=== PATIENT | female | born 1980 | race Two or more races ===

== ENCOUNTER 2016-05-16 16:56 | Emergency (ER) | payer OTHER ==
[2016-05-16] MEDS ORDERED: Tetan/Diph/Pertus SYR(Tdap)* 0.5 ML SYR(BOOSTRIX) use SYR IM ONE (17:30)
[2016-05-16] MEDS ORDERED: Silver Sulfadiazine 1%* 20 GM TOPICAL ONE (17:32)
[2016-05-16 17:33] VITALS: BP 146/92
--- NOTE | 2016-05-17 09:29 | ED ---
Nathen Tavarez Michael, scribed for Bakari Sidhu MD on 05/16/16 at 1736 . Burn - HPI Summary HPI Summary: 36 y/o female comes to the ED presenting with multiple mckeon after spilling boiling water on herself at home 4 days ago. The pt reports that she has decreased strength in her RUE, so the pot with boiling water fell out of her hands. The mckeon are on her RLE and abd. She has been applying Sildvadine to the mckeon and has not been covering them. - History of Current Complaint Chief Complaint: EDBurnSmokeInh Stated Complaint: BURN ON ABD/LEG Time Seen by Provider: 05/16/16 17:25 Hx Obtained From: Patient, Medical Records Occurred: Days Ago Onset Severity: Moderate Current Severity: Moderate Pain Intensity: 8 Pain Scale Used: 0-10 Numeric Location: Trunk, RLE Character: Erythema Alleviating: Ointments Associated Signs & Symptoms: Positive: Negative Occupational Injury: No - Allergy/Home Medications Allergies/Adverse Reactions: Allergies Allergy/AdvReac Type Severity Reaction Status Date / Time No Known Allergies Allergy Verified 05/16/16 17:00 PMH/Surg Hx/FS Hx/Imm Hx Previously Healthy: Yes Musculoskeletal History: Denies: Hx Rheumatoid Arthritis Infectious Disease History: No Infectious Disease History: Denies: Traveled Outside the [place] in Last 30 Days - Family History Known Family History: Positive: None Family History: pt denies significant FHx - Social History Occupation: Employed Full-time Lives: With Family Alcohol Use: None Hx Substance Use: No Substance Use Type: Reports: None Hx Tobacco Use: No Smoking Status (MU): Never Smoked Tobacco Review of Systems Negative: Fever Positive: Other - burn All Other Systems Reviewed And Are Negative: Yes Physical Exam Triage Information Reviewed: Yes Vital Signs On Initial Exam: Initial Vitals Temp Pulse Resp BP Pulse Ox 96.8 F 77 18 151/96 100 05/16/16 17:00 05/16/16 17:00 05/16/16 17:00 05/16/16 17:00 05/16/16 17:00 Vital Signs Reviewed: Yes Appearance: Positive: Well-Appearing, No Pain Distress, Obese Skin: Positive: Warm, Skin Color Reflects Adequate Perfusion, Dry, Other - deep partial mckeon of the anterior right lower leg, medial thigh, and abd totally 1% of total body surface area Head/Face: Positive: Normal Head/Face Inspection Eyes: Positive: Normal ENT: Positive: Normal ENT inspection Neck: Positive: Supple, Nontender Respiratory/Lung Sounds: Positive: Clear to Auscultation, Breath Sounds Present Cardiovascular: Positive: RRR Abdomen Description: Positive: Nontender, Soft Bowel Sounds: Positive: Present Musculoskeletal: Positive: Normal Neurological: Positive: Normal Psychiatric: Positive: Affect/Mood Appropriate Burn Calculation - Quinter Formula for Fluid Resuscitation Weight: 243 lb 24 -Hour Fluid Replacement: 0.0 Diagnostics - Vital Signs Vital Signs Temp Pulse Resp BP Pulse Ox 05/16/16 17:00 96.8 F 77 18 151/96 100 - Laboratory Lab Statement: Any lab studies that have been ordered have been reviewed, and results considered in the medical decision making process. Burn Course/Dx - Course Course Of Treatment: Ms. Balderrama has partial thickness mckeon some of which had blistered and ruptured. She has been using some Silvadene and they don't look infected to me. I will continue treatment with silvadene. There is nothing to debride. - Diagnoses Provider Diagnosis: Burn Discharge - Discharge Plan Condition: Stable Disposition: HOME Prescriptions: Silver Sulfadiazine 1% 400gm* [SILVadine 1% 400 gm jar*] 1 applic TOPICAL BID # 1 jar Patient Education Materials: Acute Wound Care (ED) Referrals: [facility] [place] [facility] [place]Outside] Additional Instructions: Please follow up with a Primary Physician Referral within the next 3-5 days. The documentation as recorded by the Nathen byrne Michael accurately reflects the service I personally performed and the decisions made by me, Bakari Sidhu MD.
== END 2016-05-16 17:45 | disposition home or self-care (01) ==
LOC: ED 16:56
DX: T23.109A Burn of first degree of unspecified hand, unspecified site, initial encounter (principal); X12.XXXA Contact with other hot fluids, initial encounter; Y93.9 Activity, unspecified; Y92.9 Unspecified place or not applicable
CPT/HCPCS: 90471; 90715; 99282; A9270-GY

== ENCOUNTER 2016-08-28 14:46 | Emergency (ER) | payer OTHER ==
[2016-08-28] MEDS ORDERED: NS 0.9% 1000 ML* 2,000 ML IV ONE (15:05)
[2016-08-28 15:56] LABS: Hematocrit 40 % (35-47); Hemoglobin 13.4 g/dl (12.0-16.0); Mean Corpuscular HGB Conc 34 g/dl (31-36); Mean Corpuscular Hemoglobin 30 pg (27-31); Mean Corpuscular Volume 89 fL (80-97); Mean Platelet Volume 8 um3 (7.4-10.4); Red Blood Count 4.49 10^6/ul (4.0-5.4); Red Cell Distribution Width 14 % (10.5-15); White Blood Count 8.7 10^3/ul (3.5-10.8)
[2016-08-28 16:15] LABS: Albumin 4.1 g/dL (3.2-5.2); BUN/Creatinine Ratio 14.1 (8-20); EGFR African American 136.6 (>60); EGFR Non-African American 106.2 (>60); Globulin 3.2 g/dL (2-4); Magnesium 1.8 mg/dL (1.9-2.7); Potassium 3.5 mmol/L (3.5-5.0); Total Bilirubin 0.4 mg/dL (0.2-1.0); Total Protein 7.3 g/dL (6.4-8.9)
[2016-08-28 16:21] LABS: TSH (Thyroid Stimulating Horm) 1.03 mcIU/mL (0.34-5.60)
[2016-08-28] MEDS ORDERED: Meclizine TAB* 12.5 MG PO ONE ×2 (18:48→18:49)
[2016-08-28] MEDS ORDERED: Amoxicillin/Clavulanate TAB* 875 MG PO ONE ×2 (18:48)
[2016-08-28] MEDS ORDERED: HYDROcodone/ACETAMIN 5-325 MG* 1 TAB PO ONE (18:50)
--- NOTE | 2016-08-28 18:56 | ED ---
Christine Tavarez Alfonso, scribed for Melo Fair MD on 08/28/16 at 1836 . Dizziness - HPI Summary HPI Summary: This patient is a 36 year old female presenting to [facility] c/o dizziness since 4 days ago. She reports room spinning and a near syncopal episode today upon getting up from a chair. She rates the pain 6/10 in severity. Sx aggravated by change in head position and alleviated by nothing. She reports chills, nausea, CP (worse), sore throat, rhinorrhea, a non-productive cough, and sinus pressure. She denies fever, rash, diarrhea, urinary symptoms, and loss of appetite. - History Of Current Complaint Chief Complaint: EDGeneral Stated Complaint: NEAR SYNCOPE/NAUSEA,DIZZY Time Seen by Provider: 08/28/16 18:22 Hx Obtained From: Patient Onset/Duration: Still Present, Suddenly - 4 days ago Timing: Constant - 4 days ago Severity Initially: Moderate Severity Currently: Moderate Character: Room Spinning, Dizzy Aggravating Factor(s): Change In Head Position Alleviating Factor(s): Nothing Associated Signs And Symptoms: Positive: Nausea, Chest Pain - Worse, Chills, Other: - Positive near syncopal episode, sore throat, rhinorrhea, a non- productive cough, and sinus pressure; Negative rash, urinary symptoms, and loss of appetite. Negative: Diarrhea, Fever - Allergies/Home Medications Allergies/Adverse Reactions: Allergies Allergy/AdvReac Type Severity Reaction Status Date / Time No Known Allergies Allergy Verified 05/16/16 17:00 PMH/Surg Hx/FS Hx/Imm Hx Musculoskeletal History: Denies: Hx Rheumatoid Arthritis Opthamlomology History: Denies: Hx Legally Blind EENT History: Denies: Hx Deafness Infectious Disease History: No Infectious Disease History: Denies: Traveled Outside the [place] in Last 30 Days - Family History Known Family History: Positive: Cardiac Disease, Diabetes - Social History Alcohol Use: None Hx Substance Use: No Substance Use Type: Reports: None Hx Tobacco Use: No Smoking Status (MU): Never Smoked Tobacco Review of Systems Positive: Chills. Negative: Fever Positive: Sore Throat, Other - Positive non-productive cough, rhinorrhea, and sinus pressure; Positive: Chest Pain - Worse Positive: Nausea. Negative: Diarrhea Positive: no symptoms reported Negative: Rash Neurological: Other - Positive near syncopal episode, dizziness, and room spinning; negative loss of appetite. All Other Systems Reviewed And Are Negative: Yes Physical Exam Triage Information Reviewed: Yes Vital Signs On Initial Exam: Initial Vitals Temp Pulse Resp BP Pulse Ox 97.9 F 86 17 134/86 96 08/28/16 14:52 08/28/16 14:52 08/28/16 14:52 08/28/16 14:52 08/28/16 14:52 Vital Signs Reviewed: Yes Appearance: Positive: Well-Appearing, No Pain Distress, Obese Skin: Positive: Warm, Skin Color Reflects Adequate Perfusion, Dry Head/Face: Positive: Normal Head/Face Inspection Eyes: Positive: EOMI, JESSICA ENT: Positive: Other - Rhinorrhea, Bilateral Serous Otitis Media Neck: Positive: Other: - cervical anterior lymphadenopathy Respiratory/Lung Sounds: Positive: Clear to Auscultation, Breath Sounds Present Cardiovascular: Positive: RRR Abdomen Description: Positive: Nontender, Soft Bowel Sounds: Positive: Present Musculoskeletal: Positive: Normal, Strength/ROM Intact Neurological: Positive: Normal, Sensory/Motor Intact, Alert, Oriented to Person Place, Time Psychiatric: Positive: Affect/Mood Appropriate Diagnostics - Vital Signs Vital Signs Temp Pulse Resp BP Pulse Ox 08/28/16 17:51 109 154/107 08/28/16 17:48 85 135/96 08/28/16 17:44 97.1 F 75 20 104/77 98 08/28/16 14:52 97.9 F 86 17 134/86 96 - Laboratory Lab Results: Lab Results 08/28/16 08/28/16 08/28/16 Range/Units 15:26 15:26 15:26 WBC 8.7 (3.5-10.8) 10^3/ul RBC 4.49 (4.0-5.4) 10^6/ul Hgb 13.4 (12.0-16.0) g/dl Hct 40 (35-47) % MCV 89 (80-97) fL MCH 30 (27-31) pg MCHC 34 (31-36) g/dl RDW 14 (10.5-15) % Plt Count 334 (150-450) 10^3/ul MPV 8 (7.4-10.4) um3 Neut % (Auto) 59.1 (38-83) % Lymph % (Auto) 31.3 (25-47) % [place] % (Auto) 7.1 (1-9) % Eos % (Auto) 2.1 (0-6) % Baso % (Auto) 0.4 (0-2) % Absolute Neuts (auto) 5.1 (1.5-7.7) 10^3/ul Absolute Lymphs (auto) 2.7 (1.0-4.8) 10^3/ul Absolute Monos (auto) 0.6 (0-0.8) 10^3/ul Absolute Eos (auto) 0.2 (0-0.6) 10^3/ul Absolute Basos (auto) 0 (0-0.2) 10^3/ul Absolute Nucleated RBC 0.01 10^3/ul Nucleated RBC % 0.1 Sodium 136 (133-145) mmol/L Potassium 3.5 (3.5-5.0) mmol/L Chloride 103 (101-111) mmol/L Carbon Dioxide 24 (22-32) mmol/L Anion Gap 9 (2-11) mmol/L BUN 9 (6-24) mg/dL Creatinine 0.64 (0.51-0.95) mg/dL Est GFR ( Amer) 136.6 (>60) Est GFR (Non-Af Amer) 106.2 (>60) BUN/Creatinine Ratio 14.1 (8-20) Glucose 112 H (70-100) mg/dL Lactic Acid 2.3 H* (0.5-2.0) mmol/L Calcium 9.0 (8.6-10.3) mg/dL Magnesium 1.8 L (1.9-2.7) mg/dL Total Bilirubin 0.40 (0.2-1.0) mg/dL AST 25 (13-39) U/L ALT 35 (7-52) U/L Alkaline Phosphatase 47 (34-104) U/L Troponin I 0.00 (<0.04) ng/mL B-Natriuretic Peptide ( - 100) pg/mL Total Protein 7.3 (6.4-8.9) g/dL Albumin 4.1 (3.2-5.2) g/dL Globulin 3.2 (2-4) g/dL Albumin/Globulin Ratio 1.3 (1-3) TSH 1.03 (0.34-5.60) mcIU/mL 08/28/16 Range/Units 15:26 WBC (3.5-10.8) 10^3/ul RBC (4.0-5.4) 10^6/ul Hgb (12.0-16.0) g/dl Hct (35-47) % MCV (80-97) fL MCH (27-31) pg MCHC (31-36) g/dl RDW (10.5-15) % Plt Count (150-450) 10^3/ul MPV (7.4-10.4) um3 Neut % (Auto) (38-83) % Lymph % (Auto) (25-47) % [place] % (Auto) (1-9) % Eos % (Auto) (0-6) % Baso % (Auto) (0-2) % Absolute Neuts (auto) (1.5-7.7) 10^3/ul Absolute Lymphs (auto) (1.0-4.8) 10^3/ul Absolute Monos (auto) (0-0.8) 10^3/ul Absolute Eos (auto) (0-0.6) 10^3/ul Absolute Basos (auto) (0-0.2) 10^3/ul Absolute Nucleated RBC 10^3/ul Nucleated RBC % Sodium (133-145) mmol/L Potassium (3.5-5.0) mmol/L Chloride (101-111) mmol/L Carbon Dioxide (22-32) mmol/L Anion Gap (2-11) mmol/L BUN (6-24) mg/dL Creatinine (0.51-0.95) mg/dL Est GFR ( Amer) (>60) Est GFR (Non-Af Amer) (>60) BUN/Creatinine Ratio (8-20) Glucose (70-100) mg/dL Lactic Acid (0.5-2.0) mmol/L Calcium (8.6-10.3) mg/dL Magnesium (1.9-2.7) mg/dL Total Bilirubin (0.2-1.0) mg/dL AST (13-39) U/L ALT (7-52) U/L Alkaline Phosphatase (34-104) U/L Troponin I (<0.04) ng/mL B-Natriuretic Peptide 8 ( - 100) pg/mL Total Protein (6.4-8.9) g/dL Albumin (3.2-5.2) g/dL Globulin (2-4) g/dL Albumin/Globulin Ratio (1-3) TSH (0.34-5.60) mcIU/mL Result Diagrams: 08/28/16 15:26 08/28/16 15:26 Lab Statement: Any lab studies that have been ordered have been reviewed, and results considered in the medical decision making process. - EKG 1815 Cardiac Rate: NL - BPM 77 EKG Rhythm: Sinus Rhythm ST Segment: Normal Ectopy: None Dizzy Course/Dx - Course Course Of Treatment: NO CRITICAL CARE TIME. DISCHARGE HOME STABLE. - Diagnoses Provider Diagnoses: Sinusitis, Vertigo, Serous otitis media Discharge - Discharge Plan Condition: Stable Disposition: HOME Prescriptions: Amoxicillin/Clavulanate TAB* [Augmentin TAB 875*] 875 mg PO BID #18 tab HYDROcodone/ACETAMIN 5-325 MG* [[place] 5-325 TAB*] 1 tab PO Q4H PRN #15 tab MDD 6 PRN Reason: Pain Meclizine HCl [Meclizine 25] 25 mg PO Q6HR PRN #15 tab PRN Reason: Dizziness Patient Education Materials: Sinusitis (ED), Vertigo (ED), Serous Otitis Media (ED) Referrals: No Primary Care Phys,NOPCP [Primary Care Provider] - [facility] [place]] Additional Instructions: FOLLOW UP WITH YOUR DOCTOR. RETURN TO THE EMERGENCY DEPARTMENT FOR ANY WORSENING OF YOUR CONDITION OR QUESTIONS OR CONCERNS. The documentation as recorded by the Christine byrne Alfonso accurately reflects the service I personally performed and the decisions made by me, Melo Fair MD.
[2016-08-28 19:35] VITALS: BP 142/84
== END 2016-08-28 19:35 | disposition home or self-care (01) ==
LOC: ED 14:46
DX: R42 Dizziness and giddiness (principal); J32.9 Chronic sinusitis, unspecified; H65.90 Unspecified nonsuppurative otitis media, unspecified ear; R11.0 Nausea; R07.9 Chest pain, unspecified; J02.9 Acute pharyngitis, unspecified
CPT/HCPCS: 36415; 80053; 83605; 83735; 83880; 84443; 84484; 85025; 93005; 99283; A9270-GY

== ENCOUNTER 2016-12-08 19:52 | Emergency (ER) | payer OTHER ==
[2016-12-08] MEDS ORDERED: Ondansetron INJ* 2 MG/ML VIAL IV ONE (23:12)
[2016-12-08] MEDS ORDERED: NS 0.9% 1000 ML* 1,000 ML IV ONE (23:12)
[2016-12-08] MEDS ORDERED: Pantoprazole IV* 40 MG IV ONE (23:12)
--- NOTE | 2016-12-08 23:20 | ED ---
Abdominal Pain/Female - HPI Summary HPI Summary: 36F presents with LUQ pain for 7 days. She describes it is cramping pain. She states that it is worst with food. She has never had this pain before. She admits to nausea and vomiting. She denies any diarrhea or constipation. She states pain has been getting worst. She denies any blood in her urine or stool. She states the pain causes her not to eat much. She denies any vaginal discharge, dysuria, hematuria, flank pain, urgency, or frequency. She denies any chest pain or SOB. She denies any history of GERD or gastritis. She denies any previous abdominal surgeries. - History of Current Complaint Chief Complaint: EDAbdPain Stated Complaint: ABD PAIN Time Seen by Provider: 12/08/16 22:57 Pain Intensity: 9 Allergies/Adverse Reactions: Allergies Allergy/AdvReac Type Severity Reaction Status Date / Time No Known Allergies Allergy Verified 12/08/16 20:07 PMH/Surg Hx/FS Hx/Imm Hx Endocrine/Hematology History: Denies: Hx Diabetes Musculoskeletal History: Denies: Hx Rheumatoid Arthritis Sensory History: Denies: Hx Legally Blind, Hx Deafness Opthamlomology History: Denies: Hx Legally Blind Infectious Disease History: No Infectious Disease History: Denies: Traveled Outside the [place] in Last 30 Days - Family History Known Family History: Positive: None, Cardiac Disease, Diabetes Family History: pt denies significant FHx - Social History Alcohol Use: None Hx Substance Use: No Substance Use Type: Reports: None Hx Tobacco Use: No Smoking Status (MU): Never Smoked Tobacco Review of Systems Negative: Fever Negative: Chest Pain Negative: Shortness Of Breath Positive: Abdominal Pain, Nausea. Negative: Diarrhea All Other Systems Reviewed And Are Negative: Yes Physical Exam Triage Information Reviewed: Yes Vital Signs On Initial Exam: Initial Vitals Temp Pulse Resp BP Pulse Ox 98.5 F 82 16 144/84 100 12/08/16 20:00 12/08/16 20:00 12/08/16 20:00 12/08/16 20:00 12/08/16 20:00 Vital Signs Reviewed: Yes Appearance: Positive: Well-Appearing Skin: Positive: Warm, Dry Head/Face: Positive: Normal Head/Face Inspection Eyes: Positive: Normal, EOMI, JESSICA, Conjunctiva Clear ENT: Positive: Normal ENT inspection, Pharynx normal, TMs normal Respiratory/Lung Sounds: Positive: Clear to Auscultation, Breath Sounds Present Cardiovascular: Positive: Normal, RRR Abdomen Description: Positive: Soft, Other: - tenderness greatest in LUQ, mild in LLQ Bowel Sounds: Positive: Present Diagnostics - Vital Signs Vital Signs Temp Pulse Resp BP Pulse Ox 12/08/16 21:45 97.9 F 82 16 147/92 99 12/08/16 20:00 98.5 F 82 16 144/84 100 - Laboratory Result Diagrams: 12/08/16 23:48 12/08/16 23:48 Lab Statement: Any lab studies that have been ordered have been reviewed, and results considered in the medical decision making process. Re-Evaluation - Re-Evaluation First Eval Re-Evaluation Time: 01:13 Change: Improved Comment: feeling a little better with protonix Abdominal Pain Fem Course/Dx - Course Course Of Treatment: 36F presents with LUQ pain for 7 days. She describes it is cramping pain. She states that it is worst with food. She has never had this pain before. She admits to nausea and vomiting. She denies any diarrhea or constipation. She states pain has been getting worst. She denies any blood in her urine or stool. She states the pain causes her not to eat much. She denies any vaginal discharge, dysuria, hematuria, flank pain, urgency, or frequency. She denies any chest pain or SOB. on exam has tenderness in LUQ and mild in LLQ. labs normal wbc. Ca 6.2 and K 2.9. spoke with dr laird and dr ross about labs and recommended check mg and give Ca glauconate. supplementing Ca, Mg, and K. patient signed out pending CT and replacement of electrolytes to dr laird. - Diagnoses Differential Diagnosis: Positive: Gall Bladder Disease, Other - gastritis, GERD Provider Diagnoses: Abdominal pain Discharge - Discharge Plan Condition: Stable Disposition: OTHER Discharge Disposition Comment: sign out dr laird pending CT and electrolytes replacement Referrals: [facility] [Outside] Garry Barnard MD [Medical Doctor] -
[2016-12-09] LABS: Hematocrit 30 % (35-47); Hemoglobin 10.4 g/dl (12.0-16.0); Mean Corpuscular HGB Conc 34 g/dl (31-36); Mean Corpuscular Hemoglobin 30 pg (27-31); Mean Corpuscular Volume 88 fL (80-97); Mean Platelet Volume 7 um3 (7.4-10.4); Red Blood Count 3.44 10^6/ul (4.0-5.4); Red Cell Distribution Width 13 % (10.5-15)
[2016-12-09 00:16] LABS: ALT 25 U/L (7-52); AST 18 U/L (13-39); Albumin 2.9 g/dL (3.2-5.2); Alkaline Phosphatase 36 U/L (34-104); BUN/Creatinine Ratio 14.6 (8-20); Blood Urea Nitrogen 7 mg/dL (6-24); CO2 Carbon Dioxide 21 mmol/L (22-32); EGFR African American 190.4 (>60); Globulin 2.3 g/dL (2-4); Glucose 79 mg/dL (70-100); Lipase 25 U/L (11.0-82.0); Potassium 2.9 mmol/L (3.5-5.0); Sodium 139 mmol/L (133-145); Total Protein 5.2 g/dL (6.4-8.9)
[2016-12-09 00:23] LABS: Anion Gap 5 mmol/L (2-11); Calcium 6.2 mg/dL (8.6-10.3); Chloride 113 mmol/L (101-111)
[2016-12-09] MEDS ORDERED: Iohexol 300* (CONTRAST) 10 ML SDV IV ONE (00:45)
[2016-12-09 00:47] LABS: Urine Bacteria Absent (Absent); Urine Bilirubin Negative (Negative); Urine Glucose Negative (Negative); Urine Nitrite Negative (Negative)
[2016-12-09 01:31] LABS: Magnesium 1.5 mg/dL (1.9-2.7)
[2016-12-09] MEDS ORDERED: Magnesium Chloride EC TAB* 64 MG PO ONE (01:32)
[2016-12-09] MEDS ORDERED: Potassium Chlor TAB* 20 MEQ TAB.ER PO ONE (01:33)
[2016-12-09] MEDS ORDERED: Magnesium CITRATE* 300 ML BTL PO ONE (03:57)
--- NOTE | 2016-12-09 04:02 | ED ---
Re-Evaluation - Re-Evaluation First Eval Re-Evaluation Time: 01:13 Change: Improved Comment: feeling a little better with protonix Course/Dx - Course Course Of Treatment: DISCUSSED RESULTS WITH PATIENT. SHE WILL F/U WITH HER DOCTOR IN THE NEXT 1-2 DAYS FOR FURTHER EVALUATION FOR LOW SERUM CALCIUM, MAGNESIUM AND POTASSIUM AND HER ABDOMINAL PAIN. RETURN IF WORSE. - Diagnoses Provider Diagnoses: Abdominal pain, Hypomagnesemia, Hypokalemia, Hypocalcemia
[2016-12-09 04:17] VITALS: BP 128/78
[2016-12-09 04:48] LABS: TSH (Thyroid Stimulating Horm) 4.16 mcIU/mL (0.34-5.60)
[2016-12-09 05:17] LABS: T4 6.53 mcg/mL (6.09-12.23)
[2016-12-09 05:40] LABS: Total T3 0.92 ng/mL (0.87-1.78)
[2016-12-09 06:06] LABS: Calcium (PTH Intact) 6.2 mg/dL (8.6-10.3)
--- NOTE | 2016-12-09 08:01 | RAD ---
CLINICAL HISTORY: Left upper quadrant and left lower quadrant pain COMPARISON: None TECHNIQUE: Multiple contiguous axial CT scans were obtained of the abdomen and pelvis after the administration of intravenous contrast. Coronal and sagittal multiplanar reformations are submitted for review. Oral contrast was administered. Delayed images were obtained through the abdomen and pelvis. FINDINGS: LUNG BASES: The lung bases are clear. LIVER: The liver is diffusely low in attenuation compared to the spleen. There are no focal hepatic parenchymal masses. Liver measures 25.7 cm in long axis. BILE DUCTS: There is no intrahepatic or extrahepatic biliary dilatation. GALLBLADDER: The gallbladder is normal, without pericholecystic inflammatory change. PANCREAS: The pancreas is normal, without mass or ductal dilatation. SPLEEN: Normal in size and appearance. UPPER GI TRACT: Evaluation of the gastrointestinal tract is limited by incomplete gastric distention. The upper GI tract is unremarkable. SMALL BOWEL AND MESENTERY: The small bowel is normal in contour, course, and caliber. There is no obstruction or dilatation. COLON: The colon is normal in contour, course, caliber. There is no pericolonic inflammatory change. ADRENALS: Normal bilaterally. KIDNEYS: The kidneys are normal in shape, size, contour, and axis. There is no hydronephrosis or nephrolithiasis. BLADDER: The bladder is incompletely distended but is grossly normal. PELVIC ORGANS: The uterus and adnexa are grossly normal for technique. There is dilatation of the ovarian veins bilaterally. AORTA: The aorta is normal. IVC: Unremarkable LYMPH NODES: There is no lymphadenopathy by size criteria. ABDOMINAL WALL: There is no evidence for abdominal wall hernia. BONES AND SOFT TISSUES: Degenerative changes are noted of the spine most pronounced at L1-L2, L2-L3, and L5-S1. OTHER: None IMPRESSION: HEPATOMEGALY WITH FATTY INFILTRATION OF THE LIVER. DILATATION OF THE OVARIAN VEINS BILATERALLY WHICH IS NONSPECIFIC BUT CAN BE ASSOCIATED WITH PELVIC CONGESTION SYNDROME IN THE CORRECT CLINICAL SETTING. NO ACUTE CT PATHOLOGY OF THE VISUALIZED ABDOMEN OR PELVIS.
== END 2016-12-09 04:17 | disposition home or self-care (01) ==
LOC: ED 19:52
DX: R10.9 Unspecified abdominal pain (principal); E83.42 Hypomagnesemia; E87.6 Hypokalemia; E83.51 Hypocalcemia
CPT/HCPCS: 36415; 74177; 80053; 81003; 81015; 82330; 83690; 83735; 83970; 84436; 84443; 84479; 84484; 84702; 85025; 86141; 93005; 96374; 96375; 99284; A9270-GY; J0610; J2405; Q9967

== ENCOUNTER 2017-02-13 14:47 | Emergency (ER) | payer OTHER ==
[2017-02-13 17:57] LABS: ABS Basophils 0 10^3/ul (0-0.2); ABS Eosinophils 0.2 10^3/ul (0-0.6); ABS Lymphocytes 4.1 10^3/ul (1.0-4.8); ABS Monocytes 0.7 10^3/ul (0-0.8); ABS Neutrophils 4.4 10^3/ul (1.5-7.7); ABS Nucleated RBC 0 10^3/ul; Eosinophil % 2.1 % (0-6); Hematocrit 37 % (35-47); Hemoglobin 12.5 g/dl (12.0-16.0); Lymphocyte % 43.2 % (25-47); Mean Corpuscular HGB Conc 34 g/dl (31-36); Mean Corpuscular Hemoglobin 29 pg (27-31); Mean Corpuscular Volume 88 fL (80-97); Mean Platelet Volume 8 um3 (7.4-10.4); Nucleated Red Blood Cells % 0; Platelet Count 385 10^3/ul (150-450); Red Blood Count 4.27 10^6/ul (4.0-5.4); Red Cell Distribution Width 13 % (10.5-15); White Blood Count 9.4 10^3/ul (3.5-10.8)
[2017-02-13 18:16] LABS: EGFR Non-African American 85.8 (>60)
[2017-02-13 19:17] VITALS: BP 129/76
--- NOTE | 2017-03-04 18:12 | ED ---
Ria Tavarez Gabriel, scribed for Chevy Kim MD on 02/13/17 at 1656 . Complex/Multi-Sys Presentation - HPI Summary HPI Summary: This patient is a 36 year old F presenting to [facility] with a chief complaint of general malaise since 7 days ago. Patient was diagnosed with a UTI 7 days ago at PCP and was told to come to the ED if she didnt feel better. The patient rates the pain 9/10 in severity. Patient reports body aches, urinary frequency, back pain, chills, left ear pain, and sinus pain. Patient denies abd pain, nausea, vomiting, and diarrhea. - History Of Current Complaint Chief Complaint: EDGeneral Time Seen by Provider: 02/13/17 16:43 Hx Obtained From: Patient Onset/Duration: Lasting Weeks - 1, Still Present Timing: Constant Severity Currently: Moderate Severity Initially: Moderate Associated Signs And Symptoms: Positive: Other - body aches, urinary frequency, back pain, chills, left ear pain, and sinus pain.. Negative: Nausea, Vomiting, Diarrhea - Allergies/Home Medications Allergies/Adverse Reactions: Allergies Allergy/AdvReac Type Severity Reaction Status Date / Time No Known Allergies Allergy Verified 02/13/17 15:02 PMH/Surg Hx/FS Hx/Imm Hx Previously Healthy: No Endocrine/Hematology History: Denies: Hx Diabetes Cardiovascular History: Denies: Hx Hypertension History: Denies: Hx Dialysis, Hx Renal Disease Musculoskeletal History: Denies: Hx Rheumatoid Arthritis Sensory History: Denies: Hx Legally Blind, Hx Deafness Opthamlomology History: Denies: Hx Legally Blind - Surgical History Surgery Procedure, Year, and Place: TUBAL LIGATION Infectious Disease History: No Infectious Disease History: Denies: Traveled Outside the [place] in Last 30 Days - Family History Known Family History: Positive: Cardiac Disease, Diabetes Family History: pt denies significant FHx - Social History Alcohol Use: None Hx Substance Use: No Substance Use Type: Reports: None Hx Tobacco Use: No Smoking Status (MU): Never Smoked Tobacco Review of Systems Positive: Chills Positive: Ear Ache - left , Other - sinus pain Negative: Abdominal Pain, Vomiting, Diarrhea, Nausea Positive: frequency Positive: Myalgia, Other - back pain All Other Systems Reviewed And Are Negative: Yes Physical Exam - Summary Physical Exam Summary: Appearance: Well-appearing, Well-nourished Skin: Warm, Dry, No rash, Acanthosis nigricans and a significant amount of facial hair Eyes: Normal, PERRL, EOMI, sclera anicteric ENT: Normal Neck: Supple, nontender Respiratory: Clear to auscultation Cardiovascular: S1, S2, no murmur, no rub, no gallop Abdomen: Soft, nontender, no organomegaly Bowel sounds: Present Musculoskeletal: Normal, Strength/ROM Intact, no edema, pulses symmetrical Neurological: Normal, A&Ox3, cranial nerves II-XII WNL, follows commands, gait not tested, sensation intact to pin and light touch Psychiatric: affect normal, behavior appropriate, dressed appropriately, judgment intact Triage Information Reviewed: Yes Vital Signs On Initial Exam: Initial Vitals Temp Pulse Resp BP Pulse Ox 97.1 F 71 15 139/80 100 02/13/17 14:57 02/13/17 14:57 02/13/17 14:57 02/13/17 14:57 02/13/17 14:57 Vital Signs Reviewed: Yes Diagnostics - Vital Signs Vital Signs Temp Pulse Resp BP Pulse Ox 02/13/17 14:57 97.1 F 71 15 139/80 100 - Laboratory Lab Results: Lab Results 02/13/17 02/13/17 Range/Units 17:43 17:43 WBC 9.4 (3.5-10.8) 10^3/ul RBC 4.27 (4.0-5.4) 10^6/ul Hgb 12.5 (12.0-16.0) g/dl Hct 37 (35-47) % MCV 88 (80-97) fL MCH 29 (27-31) pg MCHC 34 (31-36) g/dl RDW 13 (10.5-15) % Plt Count 385 (150-450) 10^3/ul MPV 8 (7.4-10.4) um3 Neut % (Auto) 46.6 (38-83) % Lymph % (Auto) 43.2 (25-47) % Starke % (Auto) 7.7 (1-9) % Eos % (Auto) 2.1 (0-6) % Baso % (Auto) 0.4 (0-2) % Absolute Neuts (auto) 4.4 (1.5-7.7) 10^3/ul Absolute Lymphs (auto) 4.1 (1.0-4.8) 10^3/ul Absolute Monos (auto) 0.7 (0-0.8) 10^3/ul Absolute Eos (auto) 0.2 (0-0.6) 10^3/ul Absolute Basos (auto) 0 (0-0.2) 10^3/ul Absolute Nucleated RBC 0 10^3/ul Nucleated RBC % 0 ESR 24 H (0-14) mm/Hr Sodium 137 (133-145) mmol/L Potassium 4.3 (3.5-5.0) mmol/L Chloride 102 (101-111) mmol/L Carbon Dioxide 28 (22-32) mmol/L Anion Gap 7 (2-11) mmol/L BUN 11 (6-24) mg/dL Creatinine 0.77 (0.51-0.95) mg/dL Est GFR ( Amer) 110.4 (>60) Est GFR (Non-Af Amer) 85.8 (>60) BUN/Creatinine Ratio 14.3 (8-20) Glucose 101 H (70-100) mg/dL Calcium 9.3 (8.6-10.3) mg/dL Total Bilirubin 0.40 (0.2-1.0) mg/dL AST 31 (13-39) U/L ALT 42 (7-52) U/L Alkaline Phosphatase 54 (34-104) U/L Total Protein 7.4 (6.4-8.9) g/dL Albumin 4.1 (3.2-5.2) g/dL Globulin 3.3 (2-4) g/dL Albumin/Globulin Ratio 1.2 (1-3) Result Diagrams: 02/13/17 17:43 02/13/17 17:43 Lab Statement: Any lab studies that have been ordered have been reviewed, and results considered in the medical decision making process. Complex Multi-Symp Course/Dx Assessment/Plan: This patient is a 36 year old F presenting to [facility] with a chief complaint of general malaise since 7 days ago. Patient was diagnosed with a UTI 7 days ago at PCP and was told to come to the ED if she didnt feel better. The patient rates the pain 9/10 in severity. Patient reports body aches , urinary frequency, back pain, chills, left ear pain, and sinus pain. Patient denies abd pain, nausea, vomiting, and diarrhea. Test results with no significant abnormalities. Patient will be discharged and follow up from Dr. Mckeon. The patient is agreeable with this plan. - Diagnoses Provider Diagnoses: Malaise and fatigue, Acanthosis nigricans, acquired, Female hirsutism Discharge - Discharge Plan Condition: Good Disposition: HOME Patient Education Materials: Arthralgia (ED) Referrals: Vinnie Mckeon MD [Primary Care Provider] - The documentation as recorded by the Ria bryne Gabriel accurately reflects the service I personally performed and the decisions made by me, Chevy Kim MD.
== END 2017-02-13 19:12 | disposition home or self-care (01) ==
LOC: ED 14:47
DX: R53.81 Other malaise (principal); R53.83 Other fatigue; L83 Acanthosis nigricans; L68.0 Hirsutism; R35.0 Frequency of micturition; H92.02 Otalgia, left ear; J34.89 Other specified disorders of nose and nasal sinuses; Z87.440 Personal history of urinary (tract) infections
CPT/HCPCS: 36415; 80053; 85025; 85652; 99282

== ENCOUNTER 2017-03-20 15:24 | Emergency (ER) | payer OTHER ==
--- NOTE | 2017-03-20 16:07 | ED ---
Back Pain - HPI Summary HPI Summary: Pt here w/ low back pain, tail bone pain and now pain radiating into Rt LE along lateral side of thigh. Tailbone pain started 5 days ago - no known injury. She also reports new onset "black" vaginal d/c that started today. The tailbone pain is present always and difficult to get out of bed d/t pain. Today , she was lifting something at work and had pain in lumbar spine shoot into Rt thigh. Rt LE w/ warmth and tingling - denies numbness, weakness, bowel/bladder changes, saddle paresthesia and can still bear weight here. Feels best lying flat. No previous back issues. Admits to 3 c-sections from 3 previous pregnancies - healthy, FT, no issues. She does admit to dyspareunia past few months - no post coital bleeding. LMP 02/25/2018. Reports she's not d/t have this until 03/28/2017 so was concerned about "black" d/c she's having today. Denies vaginal irritation, pain, pelvic pain, ab pain, N/V/D. Did have some constipation issues but has corrected this with OTC products. - History of Current Complaint Chief Complaint: EDBackInjuryPain Stated Complaint: PULLED MUSCLE LEG Time Seen by Provider: 03/20/17 15:47 Hx Obtained From: Patient Pain Intensity: 8 - Allergies/Home Medications Allergies/Adverse Reactions: Allergies Allergy/AdvReac Type Severity Reaction Status Date / Time No Known Allergies Allergy Verified 02/13/17 15:02 PMH/Surg Hx/FS Hx/Imm Hx Previously Healthy: Yes Endocrine/Hematology History: Denies: Hx Anticoagulant Therapy, Hx Blood Disorders, Hx Diabetes, Hx Thyroid Disease, Hx Anemia, Hx Unexplained Bleeding, Autoimmune Disease Cardiovascular History: Denies: Hx Hypertension History: Denies: Hx Dialysis, Hx Renal Disease, Other Problems/Disorders Musculoskeletal History: Denies: Hx Rheumatoid Arthritis Sensory History: Denies: Hx Legally Blind, Hx Deafness Opthamlomology History: Denies: Hx Legally Blind - Surgical History Surgery Procedure, Year, and Place: TUBAL LIGATION - Immunization History Date of Tetanus Vaccine: UTD Date of Influenza Vaccine: NO Infectious Disease History: No Infectious Disease History: Denies: Traveled Outside the [place] in Last 30 Days - Family History Known Family History: Positive: None, Cardiac Disease, Diabetes Family History: pt denies significant FHx - Social History Alcohol Use: None Hx Substance Use: No Substance Use Type: Reports: None Hx Tobacco Use: No Smoking Status (MU): Never Smoked Tobacco Review of Systems Constitutional: Negative Negative: Fever, Chills, Fatigue Cardiovascular: Negative Negative: Palpitations, Chest Pain Respiratory: Negative Negative: Shortness Of Breath Gastrointestinal: Negative Negative: Abdominal Pain, Vomiting, Diarrhea, Nausea Positive: see HPI. Negative: burning, dysuria, discharge, frequency, flank pain , incontinence, pain, urgency Positive: Arthralgia, Decreased ROM Skin: Negative Neurological: Negative Positive: Paresthesia. Negative: Headache, Weakness, Numbness, Syncope, Slurred Speech Psychological: Normal All Other Systems Reviewed And Are Negative: Yes Physical Exam Triage Information Reviewed: Yes Vital Signs On Initial Exam: Initial Vitals Temp Pulse Resp BP Pulse Ox 98.5 F 85 16 152/91 100 03/20/17 15:31 03/20/17 15:31 03/20/17 15:31 03/20/17 15:31 03/20/17 15:31 Vital Signs Reviewed: Yes Appearance: Positive: Well-Appearing, Pain Distress - no pain at rest but appears uncomfortable when trying to transition from lying reclined to sitting upright, Obese Skin: Positive: Warm, Skin Color Reflects Adequate Perfusion, Dry - subtle hursutism on chin/neck Head/Face: Positive: Normal Head/Face Inspection ENT: Positive: Hearing grossly normal, Pharynx normal - mucosa moist Neck: Positive: Other: - full anterior neck anatomy Respiratory/Lung Sounds: Positive: Clear to Auscultation, Breath Sounds Present Cardiovascular: Positive: Normal, RRR, Pulses are Symmetrical in both Upper and Lower Extremities. Negative: Leg Edema Left, Leg Edema Right Abdomen Description: Positive: Nontender, No Organomegaly, Soft. Negative: CVA Tenderness (R), CVA Tenderness (L), Distended, Guarding Bowel Sounds: Positive: Present Pelvic Exam: Positive: external exam normal, bimanual exam normal, discharge - mucous d/c - clear, yellow, brown tinged, other - pt reports some discomfort w/ pelvic exam but cervix was unreachable d/t body habitus and pt's back pain inhibiting full lithotomy position Musculoskeletal: Positive: Strength/ROM Intact, Limited @ - lumbar flexion triggers pain, Pain @ - lower lumbar spinous pp TTP; Rt SI joint TTP Neurological: Positive: Normal, Sensory/Motor Intact, Alert, Oriented to Person Place, Time Psychiatric: Positive: Normal - [place] Coma Scale Coma Scale Total: 15 Diagnostics - Vital Signs Vital Signs Temp Pulse Resp BP Pulse Ox 03/20/17 15:31 98.5 F 85 16 152/91 100 - Laboratory Lab Statement: Any lab studies that have been ordered have been reviewed, and results considered in the medical decision making process. Back Pain Course/Dx - Course Course Of Treatment: Pt presents w/ atraumatic tailbone pain starting 5 days ago. Dyspareunia over past few months then "black" vaginal d/c today. Reports she's not due for her period for 8 more days and she's like clockwork. Furthermore, she reports while lifting a box at work today, she develop lumbar pain and pain into Rt thigh. She does not exhibit any neuro deficits. This was initially thought to be BASILIA in nature d/t injury however w/ h/o atraumatic coccyx pain, vaginal d/c and dyspareunia, exam was performed to assess for pelvic pathology triggering sx. Her exam was remarkable for d/c which appeared to be w/ brown d/c (old blood?). Ordered CT to r/o pelvic mass or infection that could be contributing to her sx of coccyx and back pain. Lumbar spine and SI joint views also ordered. Pt reports she's comfortable lying flat on stretcher - does not want pain meds at this time. Signed out to JIE Carrasquillo pending imaging and lab results. - Diagnoses Provider Diagnoses: Coccyx pain, Lumbar radiculopathy, right, Vaginal discharge Discharge - Discharge Plan Condition: Stable Disposition: OTHER Discharge Disposition Comment: signed out Referrals: Vinnie Mckeon MD [Primary Care Provider] -
[2017-03-20 18:53] LABS: ABS Basophils 0.1 10^3/ul (0-0.2); ABS Eosinophils 0.1 10^3/ul (0-0.6); ABS Lymphocytes 4.4 10^3/ul (1.0-4.8); ABS Monocytes 0.7 10^3/ul (0-0.8); ABS Neutrophils 5.6 10^3/ul (1.5-7.7); ABS Nucleated RBC 0 10^3/ul; Eosinophil % 1.4 % (0-6); Hematocrit 38 % (35-47); Hemoglobin 12.8 g/dl (12.0-16.0); Lymphocyte % 40.3 % (25-47); Mean Corpuscular HGB Conc 33 g/dl (31-36); Mean Corpuscular Hemoglobin 30 pg (27-31); Mean Corpuscular Volume 88 fL (80-97); Mean Platelet Volume 8 um3 (7.4-10.4); Nucleated Red Blood Cells % 0; Platelet Count 374 10^3/ul (150-450); Red Blood Count 4.35 10^6/ul (4.0-5.4); Red Cell Distribution Width 14 % (10.5-15)
[2017-03-20 19:06] LABS: EGFR Non-African American 92.2 (>60)
--- NOTE | 2017-03-20 19:25 | PN ---
Progress Note - Progress Note Date of Service: 03/20/17 Note: Patient signed out by Klaudia MARTINEZ pending CT Patient states that wants to leave and will follow up with primary on Wednesday for imaging. discussed risks and benefits that Klaudia wanted imaging of back and pelvis to look for mass. patient decided to sign out AMA. diagnosis: back pain Condition:stable Disposition: AMA
[2017-03-20 19:27] VITALS: BP 142/87
== END 2017-03-20 19:29 | disposition left against medical advice (07) ==
LOC: ED 15:24
DX: M53.3 Sacrococcygeal disorders, not elsewhere classified (principal); M54.16 Radiculopathy, lumbar region; N89.8 Other specified noninflammatory disorders of vagina; Z53.29 Procedure and treatment not carried out because of patient's decision for other reasons
CPT/HCPCS: 36415; 80053; 85025; 86140; 99282

== ENCOUNTER 2017-10-04 07:26 | Emergency (ER) | payer OTHER ==
--- NOTE | 2017-10-04 07:46 | ED ---
Complex/Multi-Sys Presentation - HPI Summary HPI Summary: The patient is a 37 y/o female with a FHx of DM presented to the [facility] c/o numbness and burning sensation in her hands and toes described as having gloves and socks on since 1.5 months ago. She notes dizziness upon standing and difficulty sleeping. She denies CP and SOB. She last saw her physician 1 month ago but was not assessed for DM. This is scribe Alyssa Schroeder documenting for attending Dr. Arcenio MD. - History Of Current Complaint Chief Complaint: EDGeneral Time Seen by Provider: 10/04/17 07:33 Hx Obtained From: Patient Onset/Duration: Lasting Weeks - From 1.5 months ago, Still Present Timing: Weeks - 6 weeks Associated Signs And Symptoms: Positive: Dizziness - Upon standing when lying down, Other - Positive: Numbness and difficulty sleeping. Negative: SOB, Chest Pain - Allergies/Home Medications Allergies/Adverse Reactions: Allergies Allergy/AdvReac Type Severity Reaction Status Date / Time No Known Allergies Allergy Verified 10/04/17 07:53 PMH/Surg Hx/FS Hx/Imm Hx Endocrine/Hematology History: Denies: Hx Anticoagulant Therapy, Hx Blood Disorders, Hx Diabetes, Hx Thyroid Disease, Hx Anemia, Hx Unexplained Bleeding Cardiovascular History: Denies: Hx Hypertension History: Denies: Hx Dialysis, Hx Renal Disease, Other Problems/Disorders Musculoskeletal History: Denies: Hx Rheumatoid Arthritis Sensory History: Denies: Hx Legally Blind, Hx Deafness Opthamlomology History: Denies: Hx Legally Blind - Surgical History Surgery Procedure, Year, and Place: TUBAL LIGATION - Immunization History Date of Tetanus Vaccine: UTD Date of Influenza Vaccine: NO Infectious Disease History: No Infectious Disease History: Denies: Traveled Outside the [place] in Last 30 Days - Family History Known Family History: Positive: Cardiac Disease, Diabetes Family History: pt denies significant FHx - Social History Occupation: Employed Full-time Lives: With Family Alcohol Use: None Hx Substance Use: No Substance Use Type: Reports: None Hx Tobacco Use: No Smoking Status (MU): Never Smoked Tobacco Review of Systems Constitutional: Other - Positive: Difficulty sleeping Negative: Chest Pain Negative: Shortness Of Breath Neurological: Other - Positive: Dizziness Positive: Numbness - UE and LE All Other Systems Reviewed And Are Negative: Yes Physical Exam - Summary Physical Exam Summary: VITAL SIGNS: Reviewed. GENERAL: Patient is an obese female , lying comfortably in the bed.Patient is not in any acute respiratory distress. HEAD AND FACE: Has acantosis nigrans on her neck EYES: PERRLA, EOMI x 2, No injected conjunctiva, no nystagmus. EARS: Hearing grossly intact. Ear canals and tympanic membranes are within normal limits. MOUTH: Oropharynx within normal limits. NECK: Supple, trachea is midline, no adenopathy, no JVD, no carotid bruit, no c- spine tenderness, neck with full ROM. CHEST: Symmetric, no tenderness at palpation LUNGS: Clear to auscultation bilaterally. No wheezing or crackles. CVS: Regular rate and rhythm, S1 and S2 present, no murmurs or gallops appreciated. ABDOMEN: Soft, non-tender. No signs of distention. No rebound no guarding, and no masses palpated. Bowel sounds are normal. EXTREMITIES: FROM in all major joints, no edema, no cyanosis or clubbing. NEURO: Alert and oriented x 3. No acute neurological deficits. Speech is normal and follows commands. SKIN: Dry and warm Triage Information Reviewed: Yes Vital Signs On Initial Exam: Initial Vitals Temp Pulse Resp BP Pulse Ox 97.5 F 75 16 185/100 99 10/04/17 07:29 10/04/17 07:29 10/04/17 07:29 10/04/17 07:29 10/04/17 07:29 Vital Signs Reviewed: Yes Diagnostics - Vital Signs Vital Signs Temp Pulse Resp BP Pulse Ox 10/04/17 07:29 97.5 F 75 16 185/100 99 - Laboratory Result Diagrams: 10/04/17 07:57 10/04/17 07:57 Lab Statement: Any lab studies that have been ordered have been reviewed, and results considered in the medical decision making process. - EKG 07:54 Cardiac Rate: NL - 72 pm EKG Rhythm: Sinus Rhythm EKG Interpretation: No ST elevation EKG Comparison: No Significant Change - EKG is similar to the one done on Complex Multi-Symp Course/Dx Assessment/Plan: This patient is a 37-year-old female who presents to the emergency department with chief complaint of paresthesias in the bilateral hands and bilateral feet. Patient has no history of diabetes however she has a strong family history diabetes. Blood test results without a significant abnormality. Urinalysis is negative for UTI. Patient will be given a procedure for Neurontin for the paresthesias. I discussed all the findings and test results with the patient. Patient was instructed to return to the emergency room immediately if any of the symptoms return or worsens. Plan of care was discussed with the patient and understands and agrees. All questions were answered at patient satisfaction. There were no further complaints or concerns. Lung exam before discharge: CTA B/L. Good air exchange. No wheezing or crackles heard. CVS: S1 and S2 present. No murmurs appreciated. Patient is alert and oriented x 3. Patient is hemodynamically stable. Patient will be discharged home with follow up PCP in the next 2-3 days - Diagnoses Provider Diagnoses: Neuropathy Discharge - Sign-Out/Discharge Documenting (check all that apply): Patient Departure - Discharge Plan Condition: Stable Disposition: HOME Prescriptions: Gabapentin CAP(*) [Neurontin 100 mg CAP(*)] 100 mg PO TID #30 cap Patient Education Materials: Paresthesia (ED) Referrals: Vinnie Mckeon MD [Primary Care Provider] - 3 Days (Follow up with your PCP in 3 days.) Additional Instructions: FOLLOW UP WITH YOUR PRIMARY CARE PROVIDER WITHIN ONE WEEK FOR HIGH BLOOD PRESSURE NOTED TODAY. RETURN TO THE ED FOR ANY WORSENING OR NEW SYMPTOMS.
[2017-10-04 08:19] LABS: ABS Basophils 0 10^3/ul (0-0.2); ABS Eosinophils 0.2 10^3/ul (0-0.6); ABS Lymphocytes 3.3 10^3/ul (1.0-4.8); ABS Monocytes 0.5 10^3/ul (0-0.8); ABS Neutrophils 3.3 10^3/ul (1.5-7.7); ABS Nucleated RBC 0 10^3/ul; Eosinophil % 2.4 % (0-6); Hematocrit 38 % (35-47); Hemoglobin 12.8 g/dl (12.0-16.0); Lymphocyte % 44.6 % (25-47); Mean Corpuscular HGB Conc 34 g/dl (31-36); Mean Corpuscular Hemoglobin 30 pg (27-31); Mean Corpuscular Volume 87 fL (80-97); Mean Platelet Volume 7.7 um3 (7.4-10.4); Nucleated Red Blood Cells % 0; Platelet Count 364 10^3/ul (150-450); Red Blood Count 4.34 10^6/ul (4.00-5.40); Red Cell Distribution Width 13 % (10.5-15); White Blood Count 7.3 10^3/ul (3.5-10.8)
[2017-10-04 08:29] LABS: EGFR Non-African American 100.2 (>60)
[2017-10-04 09:23] LABS: Urine Appearance Cloudy; Urine Blood Negative (Negative); Urine Color Yellow; Urine Ketones Negative (Negative); Urine Protein Negative (Negative); Urine Specific Gravity 1.015 (1.010-1.030); Urine Urobilinogen Negative (Negative)
[2017-10-04 10:30] VITALS: BP 161/91
== END 2017-10-04 10:30 | disposition home or self-care (01) ==
LOC: ED 07:26
DX: G62.9 Polyneuropathy, unspecified (principal); Z83.3 Family history of diabetes mellitus
CPT/HCPCS: 36415; 80053; 81003; 83690; 85025; 86140; 93005; 99282

== ENCOUNTER 2018-03-30 17:18 | Emergency (ER) | payer OTHER ==
[2018-03-30] MEDS ORDERED: Ibuprofen TAB* 600 MG PO ONE (18:00)
--- NOTE | 2018-03-30 18:09 | ED ---
Upper Extremity Pain - HPI Summary HPI Summary: Patient is a 38 y/o F presenting to ED with complaints of right shoulder pain. She notes that she slipped on ice yesterday and landed on her right side. This morning, she woke up with right shoulder pain. She reports decreased ROM and pain with movement. No chest pain is reported. On triage, pain is rated 6/10, nothing is noted to aggravate/alleviate Sx. Home medications and allergies are reviewed. - History of Current Complaint Chief Complaint: CristelaAdrianedwayne Stated Complaint: FALL YESTERDAY, RIGHT SHOULDER INJURY Time Seen by Provider: 03/30/18 17:51 Hx Obtained From: Patient Mechanism Of Injury: Fall From A Standing Position Onset/Duration: Started Hours Ago - fall yesterday, pain this morning, Still Present Timing: Constant, Lasting Hours - fall yesterday, pain this morning Severity Currently: Severe - 6/10 Pain Location: Shoulder - right Aggravating Factor(s): Movement Alleviating Factor(s): Nothing Associated Signs & Symptoms: Negative: Chest Pain - Allergies/Home Medications Allergies/Adverse Reactions: Allergies Allergy/AdvReac Type Severity Reaction Status Date / Time No Known Allergies Allergy Verified 03/30/18 17:34 PMH/Surg Hx/FS Hx/Imm Hx Endocrine/Hematology History: Denies: Hx Anticoagulant Therapy, Hx Blood Disorders, Hx Diabetes, Hx Thyroid Disease, Hx Anemia, Hx Unexplained Bleeding Cardiovascular History: Denies: Hx Hypertension History: Denies: Hx Dialysis, Hx Renal Disease, Other Problems/Disorders Musculoskeletal History: Denies: Hx Rheumatoid Arthritis Sensory History: Denies: Hx Legally Blind, Hx Deafness Opthamlomology History: Denies: Hx Legally Blind - Surgical History Surgery Procedure, Year, and Place: TUBAL LIGATION - Immunization History Date of Tetanus Vaccine: UTD Date of Influenza Vaccine: NO Infectious Disease History: No Infectious Disease History: Denies: Traveled Outside the [place] in Last 30 Days - Family History Known Family History: Positive: Cardiac Disease, Diabetes - Social History Alcohol Use: None Hx Substance Use: No Substance Use Type: Reports: None Hx Tobacco Use: No Smoking Status (MU): Never Smoked Tobacco Review of Systems Negative: Chest Pain Musculoskeletal: Other - POSITIVE - RIGHT SHOULDER PAIN All Other Systems Reviewed And Are Negative: Yes Physical Exam - Summary Physical Exam Summary: Appearance: Well appearing, no pain distress Skin: warm, dry, reflects adequate perfusion Head/face: normal Eyes: EOMI, JESSICA ENT: normal Neck: supple, non-tender Respiratory: CTA, breath sounds present Cardiovascular: RRR, pulses symmetrical Abdomen: non-tender, soft Musculoskeletal: tenderness of right shoulder, no deformity, decreased ROM of RUE, patient is neurovascularly intact. Neuro: normal, sensory motor intact, A&Ox3 Triage Information Reviewed: Yes Vital Signs On Initial Exam: Initial Vitals Temp Pulse Resp BP Pulse Ox 97.1 F 89 19 153/69 97 03/30/18 17:32 03/30/18 17:32 03/30/18 17:32 03/30/18 17:32 03/30/18 17:32 Vital Signs Reviewed: Yes Diagnostics - Vital Signs Vital Signs Temp Pulse Resp BP Pulse Ox 03/30/18 17:32 97.1 F 89 19 153/69 97 - Laboratory Lab Statement: Any lab studies that have been ordered have been reviewed, and results considered in the medical decision making process. - Radiology RIGHT SHOULDER X-RAY Radiology Interpretation Completed By: Radiologist Summary of Radiographic Findings: IMPRESSION: Normal radiograph of the right shoulder. If the patient's symptoms persist, follow-up imaging is recommended. This report was reviewed by ED physician. Course/Dx - Course Course Of Treatment: Patient is a 38 y/o F presenting to ED with complaints of right shoulder pain. She notes that she slipped on ice yesterday and landed on her right side. This morning, she woke up with right shoulder pain. She reports decreased ROM and pain with movement. No chest pain is reported. On physical exam, tenderness of right shoulder, no deformity, decreased ROM of RUE, patient is neurovascularly intact. Right shoulder X-ray showed no fracture. During ED course, patient received 600 mg Motrin Tab PO. Patient will be discharged to home with follow up to orthopedics and PCP. Patient is agreeable with this. - Diagnoses Provider Diagnoses: Right shoulder strain Discharge - Sign-Out/Discharge Documenting (check all that apply): Patient Departure - DISCHARGE Patient Received Moderate/Deep Sedation with Procedure: No - NO PROCEDURES DONE - Discharge Plan Condition: Stable Disposition: HOME Prescriptions: Ibuprofen TAB* [Motrin TAB* 600 MG] 600 mg PO Q8H PRN #20 tab MDD 3 PRN Reason: Pain Patient Education Materials: Shoulder Pain (ED) Referrals: Vinnie Mckeon MD [Primary Care Provider] - 3 Days Taz Childs MD [Medical Doctor] - 3 Days Additional Instructions: RETURN TO ED WITH ANY NEW OR WORSENING SYMPTOMS. FOLLOW UP WITH PRIMARY CARE PHYSICIAN WITHIN THREE DAYS. - Attestation Statements Document Initiated by Scribe: Yes Documenting Scribe: JANA LUTZ Provider For Whom Scribe is Documenting (Include Credential): JERMAINE PUCKETT MD Scribe Attestation: I, JANA LUTZ , scribed for JERMIANE PUCKETT MD on 03/30/18 at 1835. Status of Scribe Document: Ready
[2018-03-30 18:38] VITALS: BP 153/97
== END 2018-03-30 18:37 | disposition home or self-care (01) ==
LOC: ED 17:18
DX: S43.401A Unspecified sprain of right shoulder joint, initial encounter (principal); W00.0XXA Fall on same level due to ice and snow, initial encounter; Y92.9 Unspecified place or not applicable
CPT/HCPCS: 99282; A9270-GY

== ENCOUNTER → 2018-04-14 13:00 | Emergency (ER) | payer OTHER ==
[~2018-04-14 13:00] MED LIST: Albuterol 2.5 MG/3 ML NEB.SOL* (0.083%) INH ONE; Naproxen TAB* 250 MG PO ONE; predniSONE TAB* 20 MG PO ONE
--- OUTSIDE RECORDS SUMMARY | 2018-04-14 13:28 | XMS REPORT | Continuity of Care Document ---
:1980 Author Organization [facility] Care Team Providers Name Role Phone BRYCE DEL ANGEL Admitting Physician BRYCE DEL ANGEL Attending Physician Allergies and Intolerances No Known Allergies Medications RxNorm Medication Dose Route Instructions Start End Status Date Date Amoxicillin 875 1 tab oral orally every 12 Active MG / Clavulanate hours (take with 125 MG Oral food or milk) Tablet ProAir HFA 1 puff Inhalation inhaled every 6 Active Inhaler 90 hours as needed. mcg/actuation (as needed for wheezing, shortness of breath, bronchospasms) 334077 Acetaminophen 325 1 tab oral orally every 6 Completed MG / Hydrocodone hours as needed. 8 Bitartrate 5 MG Oral Tablet Amoxicillin Oral 500 mg oral orally 3 times Completed per day (10 days) Ibuprofen 800 MG 800 mg oral orally 3 times Completed Oral Tablet per day as needed. (4 days) (as needed for fever/pain) Metformin Oral 24 2000 mg oral orally every day Completed hr Tab at bedtime ( administer with evening meal) 8640 Prednisone (Take 60 mg PO Completed QD for 2 days, then take 40 mg PO QD for 2 days, then take 20 mg PO QD for 2 days.) Problems No Data in the system Procedures No data in the system Results No data in the system Social History Code Code System Social History Observation Description Dates Observed 909205105 SNOMED CT Current Smoking Status Never smoker UNK AdministrativeGender Sex Assigned At Unknown Vital Signs Code Code System Vitals Value Date 8865-8 LOINC Pulse Rate 78 {beats}/min 04/06/2018 98042-3 LOINC O2% BldC Oximetry 96 % 04/06/2018 8480-6 LOINC BP Systolic 151 mm[Hg] 04/06/2018 8462-4 LOINC BP Diastolic 100 mm[Hg] 04/06/2018 8310-5 LOINC Body Temperature 98.3 [degF] 04/06/2018 9279-1 LOINC Respiratory Rate 20 /min 04/06/2018 8302-2 LOINC Height 67 [in_i] 04/06/2018 38406-2 LOINC Weight 127.27 kg 04/06/2018 3140-1 LOINC Body surface area Derived from formula 2.33 m2 04/06/2018 17109-9 LOINC BMI (Body Mass Index) 44 kg/m2 04/06/2018 Goals Section No data in the system Health Concerns No data in the systemEncounter Diagnosis Date Code Code System Diagnosis Status J06.9 ICD10 ACUTE UP RESPIRATORY INFECTION UNS Active Advance Directives PT STATES NO ADVANCE DIRECTIVES Directive Type Effective Date Education Trainer Notes Supporting Document Name Address Phone No Directive Type 04/06/2018 2:23:00 Not Specified Not Specified Not Specified None No specified PM *RHIO - CONSENT IS YES Directive Type Effective Date Education Trainer Notes Supporting Document Name Address Phone No Directive Type 07/02/2015 9:16:00 Not Specified Not Specified Not Specified None No specified AM Family History Relationship: Mother Health Problem Age At Onset Notes BP - High blood pressure 38 Years Relationship: Brother Health Problem Age At Onset Notes Diabetes mellitus 12 Years Hypertension 12 Years Relationship: Sister Health Problem Age At Onset Notes Diabetes mellitus 17 Years Hypertension 17 Years Functional Status Code Functional Condition Code System Date Status Independent adls SNOMED CT 04/06/2018 Active Appears well nourished/hydrated SNOMED CT 04/06/2018 Active Immunizations Vaccine Code Code System Vaccine Name Date Status LAST TETANUS 2010 Completed Medical Equipment No data in the system Mental Status Code Cognitive Condition Code System Date Status Perrl SNOMED CT 04/06/2018 Active Oriented x [address] 04/06/2018 Active Mild distress SNOMED CT 04/06/[address] 04/06/2018 Active Assessment and Plan Assessments No data in the systemPlan Of Treatment No data in the systemPending Tests No data in the system Hospital Discharge Instructions No data in the system Reason for Visit Reason for Visit Congestion
--- NOTE | 2018-04-14 15:48 | ED ---
Respiratory - HPI Summary HPI Summary: A 38 y/o F presents to ED with c/o cough onset more than one week ago. Pt was seen at [facility] 8 days ago for the same sx. She was given an inhaler and a 10 day course of Augmentin which she is almost done with. Associated sx: chest and back pain secondary to the coughing, fever which has resolved, sore throat, dyphagia with eating, sinus congestion. Denies ear pain, abd pain, n/v/d, pedal edema and LE pain. PMHx: bronchitis as child; denies asthma. She is a non- smoker. No daily medications. - History of Current Complaint Chief Complaint: EDUpperRespComplaint Stated Complaint: SOB Time Seen by Provider: 04/14/18 15:42 Hx Obtained From: Patient Onset/Duration: Lasting Weeks, Still Present Current Severity: Mild Pain Intensity: 0 Character: Cough (Nonproductive) Associated Signs and Symptoms: Fever - resolved, Chest Pain with Cough - Allergy/Home Medications Allergies/Adverse Reactions: Allergies Allergy/AdvReac Type Severity Reaction Status Date / Time No Known Allergies Allergy Verified 04/14/18 13:20 PMH/Surg Hx/FS Hx/Imm Hx Previously Healthy: Yes Endocrine/Hematology History: Denies: Hx Anticoagulant Therapy, Hx Blood Disorders, Hx Diabetes, Hx Thyroid Disease, Hx Anemia, Hx Unexplained Bleeding Cardiovascular History: Denies: Hx Hypertension History: Denies: Hx Dialysis, Hx Renal Disease, Other Problems/Disorders Musculoskeletal History: Denies: Hx Rheumatoid Arthritis Sensory History: Denies: Hx Legally Blind, Hx Deafness Opthamlomology History: Denies: Hx Legally Blind - Surgical History Surgery Procedure, Year, and Place: TUBAL LIGATION - Immunization History Date of Tetanus Vaccine: UTD Date of Influenza Vaccine: NO Infectious Disease History: No Infectious Disease History: Denies: Traveled Outside the [place] in Last 30 Days - Family History Known Family History: Positive: Cardiac Disease, Diabetes, Other - neg: DVT, PE Negative: Respiratory Disease - asthma - Social History Occupation: Employed Full-time Lives: With Family Alcohol Use: None Hx Substance Use: No Substance Use Type: Reports: None Hx Tobacco Use: No Smoking Status (MU): Never Smoked Tobacco Review of Systems Positive: Fever. Negative: Chills Negative: Erythema Positive: Sore Throat, Other - pos: dysphagia, sinus congestion. Negative: Ear Ache Positive: Chest Pain - due to cough Positive: Cough. Negative: Shortness Of Breath Negative: Abdominal Pain, Vomiting, Nausea Negative: dysuria, hematuria Musculoskeletal: Other - pos: back pain Negative: Edema, Other - neg: LE pain Negative: Rash Neurological: Other - neg: dizziness All Other Systems Reviewed And Are Negative: Yes Physical Exam - Summary Physical Exam Summary: Constitutional: Well-developed, Well-nourished, Alert. (-) Distressed Skin: Warm, Dry HENT: Normocephalic; Atraumatic. No sinus tenderness. Normal oropharynx. Eyes: Conjunctiva normal Neck: Musculoskeletal ROM normal neck. (-) JVD, (-) Stridor, (-) Tracheal deviation; mild cervical lymphadenopathy Cardio: Rhythm regular, rate normal, Heart sounds normal; Intact distal pulses; The pedal pulses are 2+ and symmetric. Radial pulses are 2+ and symmetric. (-) Murmur Pulmonary/Chest wall: Effort normal. (-) Respiratory distress, (-) Wheezes, (-) Rales. Lungs are clear. Pt is coughing at bedside. Abd: Soft, (-) epigastric tenderness, (-) Distension, (-) Guarding, (-) Rebound Musculoskeletal: (-) Edema Lymph: (-) Cervical adenopathy Neuro: Alert, Oriented x3 Psych: Mood and affect Normal Triage Information Reviewed: Yes Vital Signs On Initial Exam: Initial Vitals Temp Pulse Resp BP Pulse Ox 97.8 F 75 17 141/94 97 04/14/18 13:16 04/14/18 13:16 04/14/18 13:16 04/14/18 13:16 04/14/18 13:16 Vital Signs Reviewed: Yes Diagnostics - Vital Signs Vital Signs Temp Pulse Resp BP Pulse Ox 04/14/18 13:16 97.8 F 75 17 141/94 97 - Laboratory Lab Statement: Any lab studies that have been ordered have been reviewed, and results considered in the medical decision making process. - Radiology CXR Radiology Interpretation Completed By: Radiologist Summary of Radiographic Findings: Impression: No active cardiopulmonary dz is noted. ED provider has reviewed this report. Re-Evaluation - Re-Evaluation 1 Re-Evaluation Time: 18:30 Change: Improved Comment: Pt feeling improved after treatment, discussed plan to D/C home. Disposition - Course Course Of Treatment: Pt is a 38 y/o F presenting with cough onset more than one week ago. Pt was seen at [facility] 8 days ago for the same sx. She was given an inhaler and a 10 day course of Augmentin which she is almost done with. Associated sx: chest and back pain secondary to the coughing, fever which has resolved, sore throat, dyphagia with eating, sinus congestion. Denies ear pain, abd pain, n/v/d, pedal edema and LE pain. PMHx: bronchitis as child; denies asthma. She is a non-smoker. No daily medications. Flu is negative. CXR shows no active cardiopulmonary dz. Pt feeling better after breathing treatment. Will discharge home with albuterol/prednisone/naproxen and to establish and f/u with PCP or [facility] in 2-3 days. - Diagnoses Provider Diagnoses: Bronchitis, Abnormal pulmonary function test Discharge - Sign-Out/Discharge Documenting (check all that apply): Patient Departure - D/C Patient Received Moderate/Deep Sedation with Procedure: No - Discharge Plan Condition: Stable Disposition: HOME Prescriptions: Albuterol HFA INHALER* [Ventolin HFA Inhaler*] 1 - 2 puff INH Q4H PRN #1 mdi PRN Reason: Cough Naproxen TAB* [Naprosyn 250 mg TAB*] 500 mg PO Q8H PRN #20 tab PRN Reason: Pain - Severe predniSONE TAB* [Deltasone TAB*] 50 mg PO DAILY #4 tab Patient Education Materials: Naproxen (By mouth), Albuterol (By breathing), Prednisone (By mouth), Acute Bronchitis (ED), Pulmonary Function Tests (DC) Forms: *Work Release Referrals: Vinnie Mckeon MD [Primary Care Provider] - 2 Days Additional Instructions: Return to the emergency department for changing or worsening symptoms. Follow-up with your primary care provider in 2-3 days. - Attestation Statements Document Initiated by Scribe: Yes Documenting Scribe: Sourav Arenas Provider For Whom Scribe is Documenting (Include Credential): Dr. Taye Elmore MD Scribe Attestation: I, joaquín Francisibed for Dr. Taye Elmore MD on 04/14/18 at 1839.
[2018-04-14 16:04] LABS: Influenza A Molecular NEGATIVE (Negative); Influenza B Molecular NEGATIVE (Negative)
[2018-04-14 19:12] VITALS: BP 133/77
== END | disposition home or self-care (01) ==
LOC: ED 13:00
DX: J40 Bronchitis, not specified as acute or chronic (principal); R94.2 Abnormal results of pulmonary function studies; J02.9 Acute pharyngitis, unspecified; R50.9 Fever, unspecified; R07.9 Chest pain, unspecified; R05 Cough
CPT/HCPCS: 71046; 99282; A9270-GY; J7512

== ENCOUNTER 2018-11-09 07:47 | Emergency (ER) | payer OTHER ==
--- NOTE | 2018-11-09 08:50 | ED ---
Throat Pain/Nasal Congestion - HPI Summary HPI Summary: Patient is a 38-year-old female who presents emergency department for bilateral eye redness, swelling and itching times several days. Patient denies sick contacts. Denies sore throat, ear pain, fever, cough. Does not wear contact lenses. Patient notes she has allergies to dust but otherwise denies seasonal allergies. Symptoms are mild in severity. No current modifying factors. - History of Current Complaint Chief Complaint: EDEyeProblem Time Seen by Provider: 11/09/18 08:11 Hx Obtained From: Patient - Allergies/Home Medications Allergies/Adverse Reactions: Allergies Allergy/AdvReac Type Severity Reaction Status Date / Time No Known Allergies Allergy Verified 11/09/18 07:51 PMH/Surg Hx/FS Hx/Imm Hx Previously Healthy: Yes Endocrine/Hematology History: Denies: Hx Anticoagulant Therapy, Hx Blood Disorders, Hx Diabetes, Hx Thyroid Disease, Hx Anemia, Hx Unexplained Bleeding Cardiovascular History: Denies: Hx Hypertension Respiratory History: Denies: Hx Asthma, Hx Chronic Obstructive Pulmonary Disease (COPD) History: Denies: Hx Dialysis, Hx Renal Disease, Other Problems/Disorders Musculoskeletal History: Denies: Hx Rheumatoid Arthritis Sensory History: Denies: Hx Legally Blind, Hx Deafness Opthamlomology History: Denies: Hx Legally Blind - Surgical History Surgery Procedure, Year, and Place: TUBAL LIGATION - Immunization History Date of Tetanus Vaccine: UTD Date of Influenza Vaccine: NO Infectious Disease History: No Infectious Disease History: Denies: Traveled Outside the [place] in Last 30 Days - Family History Known Family History: Positive: Cardiac Disease, Diabetes, Other - neg: DVT, PE Negative: Respiratory Disease - asthma - Social History Occupation: Employed Full-time Lives: With Family Alcohol Use: None Hx Substance Use: No Substance Use Type: Reports: None Hx Tobacco Use: No Smoking Status (MU): Never Smoked Tobacco Review of Systems Constitutional: Negative Negative: Fever, Chills Positive: Blurred Vision, Drainage, Erythema ENT: Negative Cardiovascular: Negative Respiratory: Negative Gastrointestinal: Negative All Other Systems Reviewed And Are Negative: Yes Physical Exam Triage Information Reviewed: Yes Vital Signs On Initial Exam: Initial Vitals Temp Pulse Resp BP Pulse Ox 97.6 F 82 14 147/98 99 11/09/18 07:49 11/09/18 07:49 11/09/18 07:49 11/09/18 07:49 11/09/18 07:49 Vital Signs Reviewed: Yes Appearance: Positive: Well-Appearing - Pt. sitting on bed in NAD> Skin: Positive: Warm, Dry Head/Face: Positive: Normal Head/Face Inspection Eyes: Positive: EOMI, Other: - Injection bilaterally. Mucosa injected. Eyelids mildly edematous without erythema. Small amount of yellowish discharge in inner canthus. ENT: Positive: Pharynx normal, TMs normal Neck: Positive: Supple Neurological: Positive: Normal, CN Intact II-III Psychiatric: Positive: Affect/Mood Appropriate Diagnostics - Vital Signs Vital Signs Temp Pulse Resp BP Pulse Ox 11/09/18 07:49 97.6 F 82 14 147/98 99 - Laboratory Lab Statement: Any lab studies that have been ordered have been reviewed, and results considered in the medical decision making process. EENT Course/Dx - Course Course Of Treatment: Patient with likely allergic conjunctivitis. Patient given Naphcon allergy eye drops to take as directed and prescription for Zyrte. To follow-up with PCP if symptoms persist. Patient understands and agrees with plan. There is - Differential Diagnoses Differential Diagnoses: Allergic Rhinitis, Conjunctivitis - Diagnoses Provider Diagnoses: Allergic conjunctivitis Discharge ED - Sign-Out/Discharge Documenting (check all that apply): Patient Departure Patient Received Moderate/Deep Sedation with Procedure: No - Discharge Plan Condition: Good Disposition: HOME Prescriptions: Cetirizine* [ZyrTEC 10 MG TAB*] 10 mg PO DAILY #14 tab Patient Education Materials: Allergic Rhinitis (ED), Conjunctivitis (ED) Referrals: Juvencio Lenz [facility] [Primary Care Provider] - Additional Instructions: Follow up with PCP if symptoms persist Take zyrtec as directed Use eye drops one one drop in each eye every 6 hours as needed Apply cool compresses to eyes Return to ER if symptoms change or worsen - Billing Disposition and Condition Condition: GOOD Disposition: Home - Attestation Statements Provider Attestation: I was available for consult. This patient was seen by the DAVID. The patient was not presented to, seen by, or examined by me. -Franco
[2018-11-09] MEDS ORDERED: Cetirizine* 10 MG TAB PO SCH (09:00)
[2018-11-09] MEDS: Cetirizine* 10 MG TAB PO ONE (09:06)
[2018-11-09] MEDS: Naphazoline/Pheniramine OPTH* 5 ML BTL BOTH EYES ONE (09:06)
[2018-11-09 09:12] VITALS: BP 135/107
== END 2018-11-09 09:12 | disposition home or self-care (01) ==
LOC: ED 07:47
DX: H10.13 Acute atopic conjunctivitis, bilateral (principal); Z79.899 Other long term (current) drug therapy
CPT/HCPCS: 99281; A9270-GY

== ENCOUNTER 2019-01-24 07:30 | Inpatient (IN) | payer OTHER ==
[~2019-01-24 07:30] MED LIST changes: -Albuterol 2.5 MG/3 ML NEB.SOL* (0.083%) INH ONE; +Buffered Lidocaine 1% SYRIN* 1 ML/SYRINGE INTRADERM ONE; +Lactated Ringers 1000 ML Bag* 1,000 ML IV SCH; -Naproxen TAB* 250 MG PO ONE; +Scopolamine 1.5 mg* PATCH TRANSDERM ONE; -predniSONE TAB* 20 MG PO ONE
--- OUTSIDE RECORDS SUMMARY | 2019-01-24 08:24 | XMS REPORT | Continuity of Care Document ---
:1980 External Reference #:[id number] Author Name Tati Mccoy (transmitted by agent of provider Cookie Lobo) Address [address] [place] [address] Care Team Providers Name Role Phone Samy Caicedo MD - Surgery Care Team Information Cat Dog Or Other Pet Groomer [phone] [facility] - Care Team Information Cat Dog Or Other Pet Groomer [phone] Building Performance Specialist Kisha Cabrales NP - Family Care Team Information Cat Dog Or Other Pet Groomer [phone] Charito [place] MD - Internal Medicine Care Team Information Cat Dog Or Other Pet Groomer [phone] Problems Active Problems Provider Date Morbid obesity Vinnie Mckeon M.D. Onset: 01/07/2017 History of gestational diabetes Agustin Jolley M.D.,[facility] Onset: 2017 mellitus Neuralgia Vinnie Mckeon M.D. Onset: 01/13/2018 Vitamin D deficiency Vinnie Mckeon M.D. Onset: 01/13/2018 Social History Type Date Description Comments Sex Unknown Tobacco Use Start: Unknown Never Smoked Cigarettes Smoking Status Reviewed: 01/19/19 Never Smoked Cigarettes ETOH Use 10/07/2017 Denies alcohol use Tobacco Use Start: Unknown Patient has never smoked Recreational Drug Use Never Used Drugs Exercise Type/Frequency Walks 3 times a week Exercise Type/Frequency Bikes 3 times a week Allergies, Adverse Reactions, Alerts Description No Known Drug Allergies Medications Active Medications SIG Qnty Indications Ordering Provider Date Nebulizer Use with albuterol 1units J2Porter Womack 04/21/2018 Misc for wheezing Dawna Jolley,FAC Nebulizer Air Use with nebulizer 2units J22 Agustin Womack 04/21/2018 Tube/Plugs Michele Jolley.,FACP Mis Vitamin D take one capsule 4caps E55.9 Charito [place] MD 01/13/2018 (Ergocalciferol) by mouth once weekly [id number] Capsules Multi For Her once a day Unknown Tablets Naproxen 1 by mouth every 8 Unknown 250mg hours as needed Tablets for severe pain Immunizations Description No Information Available Vital Signs Date Vital Result Comment 01/19/2019 2:02pm Height 67 inches 5'7" Weight 279.00 lb Heart Rate 101 /min BP Systolic 144 mmHg BP Diastolic 93 mmHg O2 % BldC Oximetry 98 % BMI (Body Mass Index) 43.7 kg/m2 Last Menstrual Period [id number] 09/15/2018 10:49am Height 68 inches 5'8" Weight 289.00 lb Heart Rate 80 /min BP Systolic 126 mmHg BP Diastolic 82 mmHg Respiratory Rate 16 /min O2 % BldC Oximetry 97 % BMI (Body Mass Index) 43.9 kg/m2 Results Test Acquired Date Facility Test Result H/L Range Note Laboratory test 01/19/2019 [facility] Cytology <pending> finding [address] [place] [address] [phone] CBC No Diff 01/17/2019 [facility] White Blood 8.9 Normal 3.5- 10.8 [address] [facility] Count 10^3/[place] [address] [phone] Red Blood Count 4.55 10^6/uL Normal 3.70-4.87 Hemoglobin 13.3 g/dL Normal 12.0-16.0 Hematocrit 40 % Normal 35-47 Mean Corpuscular Volume 88 fL Normal 80-97 Mean Corpuscular Hemoglobin 29 pg Normal 27-31 Mean Corpuscular HGB Conc 33 g/dL Normal 31-36 Red Cell Distribution Width 14 % Normal 10-15 Platelet Count 417 10^3/uL Normal 150-450 Mean Platelet Volume 8.1 fL Normal 7.4-10.4 Basic Metabolic 01/17/2019 [facility] Sodium 137 mmol/L Normal 135-145 [address] [place] [address] [phone] Potassium 4.6 mmol/L Normal 3.5-5.0 Chloride 103 mmol/L Normal 101-111 Co2 Carbon Dioxide 29 mmol/L Normal 22-32 Anion Gap 5 mmol/L Normal 2-11 Glucose 93 mg/dL Normal 70-100 Blood Urea Nitrogen 9 mg/dL Normal 6-24 Creatinine 0.62 mg/dL Normal 0.51-0.95 BUN/Creatinine Ratio 14.5 Normal 8-20 Calcium 9.6 mg/dL Normal 8.6-10.3 Egfr Non- 108.9 >60 Egfr 131.8 >60 1 1 Because ethnic data is not always readily available, this report includes an eGFR for both -Americans and non- Americans. The National Kidney Disease Education Program (NKDEP) does not endorse the use of the MDRD equation for patients that are not between the ages of 18 and 70, are , have extremes of body size, muscle mass, or nutritional status, or are non- or non-. According to the National Kidney Foundation, irrespective of diagnosis, the stage of the disease is based on the level of kidney function: Stage Description GFR(mL/min/1.73 m(2)) 1 Kidney damage with normal or decreased GFR 90 2 Kidney damage with mild decrease in GFR 60-89 3 Moderate decrease in GFR 30-59 4 Severe decrease in GFR 15-29 5 Kidney failure <15 (or dialysis) Procedures Description No Information Available Medical Devices Description No Information Available Encounters Type Date Location Provider Dx Diagnosis Office Visit 07/28/2018 [facility] Dannielle G47.33 Obstructive sleep 11:00a [facility] apnea (adult) Order Booker (pediatric) E66.9 Obesity, unspecified Z68.41 Body mass index (BMI) 40.0-44.9, adult Office Visit 07/22/2018 4:00p [facility] Internal Lorena Carter, E66.9 Obesity, Medicine - [facility] unspecified R73.01 Impaired fasting glucose R73.01 Impaired fasting glucose Z68.41 Body mass index (BMI) 40.0-44.9, adult Assessments Date Code Description Provider 01/19/2019 Z01.419 Encounter for gynecological examination Tati Mccoy (general) (routine) without abnormal findings 01/19/2019 N92.0 Excessive and frequent menstruation with SHANTANU Mccoy regular cycle 07/28/2018 G47.33 Obstructive sleep apnea (adult) (pediatric) Dannielle Brantley NP 07/28/2018 E66.9 Obesity, unspecified Dannielle Brantley NP 07/28/2018 Z68.41 Body mass index (BMI) 40.0-44.9, adult Dannielle Brantley NP 07/22/2018 E66.9 Obesity, unspecified Lorena Carter MD 07/22/2018 R73.01 Impaired fasting glucose Lorena Carter MD 07/22/2018 R73.01 Impaired fasting glucose Lorena Carter MD 07/22/2018 Z68.41 Body mass index (BMI) 40.0-44.9, adult Lorena Carter MD Plan of Treatment Future Appointment(s):02/23/2019 2:30 pm - [facility]04/27/2019 9:10 am - Lin Dra[facility] M.D[facility] - Joseluis MccoyeZ01.419 Encounter for gynecological examination (general) (routine) without abnormal findingsComments: I will send you a letter with pap results. Please call the office if you do not receive your results within two weeks.N92.0 Excessive and frequent menstruation with regular cycleFollow up:after ultrasound Functional Status Description No Information Available Mental Status Description No Information Available Referrals Refer to Dr Reason for Referral Status Appt Date Muna Rudd MD Sent 01/19/2019 [address], [place] [address] [phone]
[2019-01-24] MEDS ORDERED: ceFAZolin 1 GM ADVAN(*) 1 GM ADDV.VIAL IVPB ONE (08:46)
[2019-01-24] MEDS ORDERED: ceFAZolin 2 GM in NS PREMIX(*) 2 GM/100 ML BAG IVPB ONE (08:46)
[2019-01-24] MEDS ORDERED: Scopolamine 1.5 mg* PATCH ONE (08:46)
[2019-01-24] MEDS ORDERED: Buffered Lidocaine 1% SYRIN* 1 ML/SYRINGE INTRADERM ONE (08:46)
[2019-01-24] MEDS ORDERED: Heparin VIAL(*) 5000 UNITS/ML VIAL (FIVE THOUSAND) ONE (08:46)
[2019-01-24] MEDS ORDERED: Midazolam* 1 MG/ML 2 ML VIAL (2 MG) ONE (08:51)
[2019-01-24] MEDS ORDERED: fentaNYL* 50 MCG/ML 5 ML VIAL (250 MCG VIAL) ONE (08:51)
[2019-01-24] MEDS ORDERED: Propofol* 10 MG/ML 20 ML BTL ONE (08:52)
[2019-01-24] MEDS ORDERED: Rocuronium* 10 MG/ML VIAL ONE (08:52)
[2019-01-24] MEDS ORDERED: Bupivacaine 0.25% EPI 200,000* 30 ML SDV ONE (10:25)
[2019-01-24] MEDS ORDERED: Dexmedetomidine* 200 MCG/2 ML 2 ML VIAL ONE (10:43)
[2019-01-24] MEDS ORDERED: KETAMINE HCL* 50 MG/ML 10 ML VIAL ONE (11:12)
[2019-01-24] MEDS ORDERED: Dexamethasone IV* 4 MG/ML 1 ML (4 MG) ONE (11:12)
[2019-01-24] MEDS ORDERED: EPHEDrine (Pressors)* 50 MG/ML VIAL ONE (11:17)
[2019-01-24] MEDS ORDERED: Naloxone* 0.4 MG/ML 1 ML VIAL IV PRN (11:23)
[2019-01-24] MEDS ORDERED: Ondansetron INJ* 2 MG/ML VIAL IV PRN ×2 (11:23→17:10)
[2019-01-24] MEDS ORDERED: PROCHLORPERAZINE INJ 5 MG/ML 2 ML VIAL IV PRN (11:23)
[2019-01-24] MEDS ORDERED: diPHENhydraMINE IV* 50 MG/ML 1 ml VIAL (BENADRYL) IV PRN (11:23)
[2019-01-24] MEDS ORDERED: HYDROmorphone INJ1* 1 MG/ML SYRINGE IV PRN (11:23)
[2019-01-24] MEDS ORDERED: HYDROmorphone INJ1* 1 MG/ML SYRINGE ONE (11:44)
[2019-01-24] MEDS ORDERED: Ondansetron INJ* 2 MG/ML VIAL ONE (12:19)
--- NOTE | 2019-01-24 12:36 | BRIEFOPN ---
Brief Operative/Procedure Note - Operation Details Pre-Op Diagnosis: morbid obesity Post-Op Diagnosis: same Procedures: laparoscopic sleeve gastrectomy Surgeon(s)/Proceduralists: Sascha. Assist: MICHELLE Cagle Anesthesia: GET Estimated Blood Loss: < 50 ml; fluids: 500 ml RL Findings: as above Specimen(s)/Culture(s) Description: portion of stomach Complications: none
[2019-01-24] MEDS ORDERED: Acetaminophen ADULT LIQ* 650 MG/20.3 ML UDC PO PRN (12:43)
[2019-01-24] MEDS ORDERED: HYDROcodone/ACET. 7.5/325 LIQ* 15 ML UDC PO PRN (12:43)
[2019-01-24] MEDS ORDERED: HYDROmorphone INJ1* 1 MG/ML SYRINGE IV SLOW PU PRN ×2 (12:43)
[2019-01-24] MEDS ORDERED: Ketorolac INJ* 30 MG/ML 1 ML VIAL IV SCH (13:00)
[2019-01-24] MEDS: Lactated Ringers 1000 ML Bag* 1,000 ML IV SCH ×2 (14:30→20:54)
[2019-01-24] MEDS: Ketorolac INJ* 30 MG/ML 1 ML VIAL IV SCH ×2 (15:25→21:38)
[2019-01-24] MEDS: Heparin VIAL(*) 5000 UNITS/ML VIAL (FIVE THOUSAND) SUBCUT SCH ×2 (15:25→21:38)
[2019-01-24] MEDS: Famotidine IV* 10 MG/ML 2 ML (20 mg) IV SLOW PU SCH (21:38)
--- NOTE | 2019-01-24 22:23 | OP ---
: [facility]; Juvencio ADELINE Lenz * DATE OF OPERATION: 01/24/19 - ROOM #353 DATE OF : 84 SURGEON: Samy Caicedo MD PORT SURVEYOR: MICHELLE Reyna ANESTHESIOLOGIST: Gali Thurman MD ANESTHESIA: General endotracheal. PRE-OP DIAGNOSIS: Clinically severe obesity. POST-OP DIAGNOSIS: Clinically severe obesity. OPERATIVE PROCEDURE: Laparoscopic sleeve gastrectomy. ESTIMATED BLOOD LOSS: Minimal. IV FLUIDS: Crystalloid. SPECIMEN: Portion of stomach. DRAINS: None. COMPLICATIONS: None. COUNTS: The instrument, needle, and sponge counts were correct. DESCRIPTION OF PROCEDURE: The patient was brought to the operating room and placed on the table supine. Sequential compression devices were placed on both lower extremities. General anesthesia was administered. The abdomen was prepped and draped in the usual sterile fashion. Time-out was performed. Local anesthetic was infiltrated into the skin and soft issue prior to making each incision. Entry to the abdomen was through a left upper quadrant incision accommodating 5 mm optical trocar. After accessing the peritoneal cavity, carbon dioxide was insufflated to a pressure of 15 mmHg. Under direct visualization, a 12 mm bladeless trocars were placed in the supraumbilical midline and right upper quadrant. A 5-mm trocar was placed in the left upper quadrant laterally. A Alicia liver retractor was placed percutaneously in the subxiphoid position and used to elevate the left lobe of the liver. The gastric anatomy appeared normal. Mobilization of the stomach was performed with a LigaSure, starting on the greater curvature, 6 cm proximal to the pylorus. The greater curvature was skeletonized in this fashion and posterior short gastric vessels at the fundus were divided in order to fully identify the left brooke of the diaphragm. Laparoscopic sleeve gastrectomy was then performed over a 40-Arabic bougie with serial firings of the EndoGIA stapler using purple reinforced cartridges. After completing the sleeve gastrectomy, the specimen was retrieved using endoscopic retrieval bag through the right upper quadrant port. Inspection revealed that there was some oozing on the distal gastric staple line and hemostasis was achieved with endoscopic port placement. Subsequently, the Alicia liver retractor and ports were removed. Carbon dioxide was released. The wounds were closed with 4-0 Monocryl in subcuticular fashion. DermaFlex was applied to the skin. The patient tolerated the procedure well, was extubated uneventfully, and transferred to Recovery in stable condition. [id number] #: [id number] MTDD
[2019-01-25] MEDS: Lactated Ringers 1000 ML Bag* 1,000 ML IV SCH ×2 (03:44→10:39)
[2019-01-25] MEDS: Ketorolac INJ* 30 MG/ML 1 ML VIAL IV SCH ×3 (03:47→15:45)
[2019-01-25] MEDS: Heparin VIAL(*) 5000 UNITS/ML VIAL (FIVE THOUSAND) SUBCUT SCH ×2 (05:50→15:45)
[2019-01-25] MEDS ORDERED: Influenza VAC *QUAD* 2019-20* 0.5 ML SYRINGE IM ONE (09:00)
--- NOTE | 2019-01-25 09:23 | PN ---
Progress Note - Progress Note Date of Service: 01/25/19 SOAP: Subjective: NAD + Flatus, - BM Comfortable overnight no c/o pain nausea or vomiting still npo [] Objective: Vital Signs Temp 98.9 F 01/25/19 08:51 Pulse 67 01/25/19 08:51 Resp 18 01/25/19 08:51 BP 127/67 01/25/19 08:51 Pulse Ox 95 01/25/19 08:51 Intake & Output 01/24/19 01/25/19 01/25/19 18:59 06:59 18:59 Intake Total 800 1970 Output Total 0 1000 Balance 800 970 Weight 277 lb 6.4 oz Intake: IV Fluids 800 1969 CEFAZOLIN 3 GRAMS 150 LR 650 1969 Oral 0 Output: Urine 0 1000 Other: Estimated Void Medium # Voids 1 PEX: GEN:NAD Chest:CTA CVS:RRR ABD:obese, soft, ND/NT, - BS's, incisions C/D/I EXT:calves soft [] Assessment: 38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
[2019-01-25] MEDS: Famotidine IV* 10 MG/ML 2 ML (20 mg) IV SLOW PU SCH (09:24)
[2019-01-25] MEDS ORDERED: D5W 1/2 NS KCl 20 Meq 1000 ML* 1,000 ML IV SCH (12:45)
[2019-01-25 15:57] VITALS: BP 151/82
[2019-01-27] MEDS ORDERED: Scopolamine PATCH Remove* 1 NOTE MISC PATCH OFF ONE (06:00)
== END 2019-01-25 18:24 | disposition home or self-care (01) | DRG 403 ==
LOC: AA 08:20 → SSU 12:43
PROVIDERS: ADMIT Surgery; ATTEND Surgery
PROC: 0DB64Z3 Excision of Stomach, Percutaneous Endoscopic Approach, Vertical (ICD-10-PCS; principal; 2019-01-24 10:15)
DX: E66.01 Morbid (severe) obesity due to excess calories (principal); G47.33 Obstructive sleep apnea (adult) (pediatric); R73.03 Prediabetes; E55.9 Vitamin D deficiency, unspecified; L83 Acanthosis nigricans; Z23 Encounter for immunization; Z68.41 Body mass index [BMI] 40.0-44.9, adult
CPT/HCPCS: 43775; 88307; 90686; 94660; A9270-GY; J0690; J1100; J1170; J1644; J1885; J2250; J2405; J2704; J3010